=== PATIENT | male | born 1940 | race African-American/Black ===

== ENCOUNTER 2017-01-13 05:20 | Emergency (ER) | payer MEDICARE, OTHER ==
[~2017-01-13] VITALS: Ht 185.4 cm; Wt 88.5 kg
[~2017-01-13 05:20] MED LIST: ACET325T9 PO; ASPI-482 PO; ASPI-630 PO; CLOP75TA PO; CLOP75TA57 PO; DIPH25CA3 PO; GABA-585 PO; HYDR25TA9 PO; LISI40TA PO; NIFE60TA PO; POTA20PA PO; PRAV20TA2 PO; PRAV40TA2 PO
--- NOTE | 2017-01-13 06:28 | PHYS DOC ---
Past Medical History Past Medical History: Hypertension Alcohol Use: None Drug Use: None Adult General Chief Complaint Chief Complaint: MUSCLE SPASM/CRAMP HPI HPI Patient is a 76 year old male presenting to the emergency department for muscle cramps primarily in his left lower extremity. 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 Patient says they have improved since he has been here but he denies any fevers chills nausea vomiting diarrhea chest pain shortness of breath. Patient is pleasant and in no obvious distress with normal vital signs. Review of Systems Review of Systems Constitutional: Denies fever or chills [] Eyes: Denies change in visual acuity, redness, or eye pain [] HENT: Denies nasal congestion or sore throat [] Respiratory: Denies cough or shortness of breath [] Cardiovascular: No additional information not addressed in HPI [] GI: Denies abdominal pain, nausea, vomiting, bloody stools or diarrhea [] : Denies dysuria or hematuria [] Musculoskeletal: Denies back pain or joint pain [] Integument: Denies rash or skin lesions [] Neurologic: Denies headache, focal weakness or sensory changes [] Current Medications Current Medications Current Medications Medications (Trade) Dose Ordered Sig/Marlene Start Time Stop Time Status Last Admin Dose Admin Sodium Chloride 1,000 ml @ 1,000 mls/hr 1X ONCE 01/13/17 06:30 01/13/17 07:29 01/13/17 06:26 1,000 MLS/HR Allergies Allergies Allergies Coded Allergies Type Severity Reaction Last Updated Verified ibuprofen Allergy Mild Nausea and Vomiting 09/11/14 Yes tramadol Allergy Mild Nausea and Vomiting 09/11/14 Yes Physical Exam Physical Exam Constitutional: Well developed, well nourished, no acute distress, non-toxic appearance. [] HENT: Normocephalic, atraumatic, bilateral external ears normal, oropharynx moist, no oral exudates, nose normal. [] Eyes: PERRLA, EOMI, conjunctiva normal, no discharge. [] Neck: Normal range of motion, no tenderness, supple, no stridor. [] Cardiovascular:Heart rate regular rhythm, no murmur [] Lungs & Thorax: Bilateral breath sounds clear to auscultation [] Abdomen: Bowel sounds normal, soft, no tenderness, no masses, no pulsatile masses. [] Skin: Warm, dry, no erythema, no rash. [] Back: No tenderness, no CVA tenderness. [] Extremities: No tenderness, no cyanosis, no clubbing, ROM intact, no edema. [] Neurologic: Alert and oriented X 3, normal motor function, normal sensory function, no focal deficits noted. [] Current Patient Data Vital Signs Vital Signs Date Time Temp Pulse Resp B/P (MAP) Pulse Ox O2 Delivery O2 Flow Rate FiO2 01/13/17 05:56 97.6 60 16 170/81 (110) 96 Room Air 97.6 Lab Values Laboratory Tests Test 01/13/17 05:55 White Blood Count 5.0 x10^3/uL (4.0-11.0) Red Blood Count 4.35 x10^6/uL (4.30-5.70) Hemoglobin 13.3 g/dL (13.0-17.5) Hematocrit 38.4 % (39.0-53.0) L Mean Corpuscular Volume 88 fL (79-100) Mean Corpuscular Hemoglobin 31 pg (25-35) Mean Corpuscular Hemoglobin Concent 35 g/dL (31-37) Red Cell Distribution Width 14.3 % (11.5-14.5) Platelet Count 125 x10^3/uL (140-400) L Neutrophils (%) (Auto) 41 % (31-73) Lymphocytes (%) (Auto) 49 % (24-48) H Monocytes (%) (Auto) 8 % (0-9) Eosinophils (%) (Auto) 3 % (0-3) Basophils (%) (Auto) 1 % (0-3) Neutrophils # (Auto) 2.0 x10^3uL (1.8-7.7) Lymphocytes # (Auto) 2.4 x10^3/uL (1.0-4.8) Monocytes # (Auto) 0.4 x10^3/uL (0.0-1.1) Eosinophils # (Auto) 0.1 x10^3/uL (0.0-0.7) Basophils # (Auto) 0.0 x10^3/uL (0.0-0.2) Sodium Level 144 mmol/L (136-145) Potassium Level 3.5 mmol/L (3.5-5.1) Chloride Level 106 mmol/L (98-107) Carbon Dioxide Level 30 mmol/L (21-32) Anion Gap 8 (6-14) Blood Urea Nitrogen 33 mg/dL (8-26) H Creatinine 2.1 mg/dL (0.7-1.3) H Estimated GFR (Cockcroft-Gault) 37.4 BUN/Creatinine Ratio 16 (6-20) Glucose Level 86 mg/dL (70-99) Calcium Level 9.1 mg/dL (8.5-10.1) Magnesium Level 2.3 mg/dL (1.8-2.4) Total Bilirubin 0.5 mg/dL (0.2-1.0) Aspartate Amino Transferase (AST) 22 U/L (15-37) Alanine Aminotransferase (ALT) 27 U/L (16-63) Alkaline Phosphatase 85 U/L (46-116) Creatine Kinase 194 U/L (39-308) Total Protein 6.6 g/dL (6.4-8.2) Albumin 3.7 g/dL (3.4-5.0) Albumin/Globulin Ratio 1.3 (1.0-1.7) Laboratory Tests 01/13/17 05:55 Laboratory Tests 01/13/17 05:55 EKG EKG [] Radiology/Procedures Radiology/Procedures [] Course & Med Decision Making Course & Med Decision Making Patient with muscle cramps in the setting of likely dehydration. We'll check labs give fluids and reassess. BUN and Cr are elevated here, not dangerously elevated. Patient was drinking large amount of PO fluids in ED. Patient feels well and wants to go home which I think is reasonable given he can rehydrate himself orally. Patient told the importance of drinking plenty of fluids and that he needs to have his labs rechecked next week by his PCP and he would need to come back to the ED with any new or worsening symptoms. Aware and agreeable with plan for discharge and verbalized understanding of the need for short-term follow-up in the strict ER return precautions discussed including worsening pain fevers vomiting or other general concerns. Dragon Disclaimer Dragon Disclaimer This electronic medical record was generated, in whole or in part, using a voice recognition dictation system. Departure Departure Impression: Primary Impression: Dehydration Additional Impressions: Renal insufficiency Muscle cramps Disposition: HOME, SELF-CARE Condition: GOOD Referrals: ESTELLE ARELLANO MD (PCP) Patient Instructions: Dehydration, Adult Additional Instructions: YOU HAVE TO DRINK A LARGE AMOUNT OF WATER AND GATORADE. GET YOUR KIDNEY FUNCTION RETESTED NEXT WEEK YOUR CREATININE AND BUN ARE ELEVATED. COME BACK TO THE ED SOONER WITH ANY NEW OR WORSENING SYMPTOMS. THANK YOU! Problem Qualifiers MIGUEL OLSON DO Jan 13, 2017 06:28
[2017-01-13 06:29] LABS: CALCIUM 9.1 mg/dL (8.5-10.1); CREATININE 2.1 mg/dL (0.7-1.3); GFR 37.4; POTASSIUM 3.5 mmol/L (3.5-5.1)
[2017-01-13] MEDS ORDERED: IV NORMAL SALINE 1000ML BAG 1,000 ML IV ONE (06:30)
[2017-01-13 06:31] LABS: BASO % 1 % (0-3); EOS % 3 % (0-3); HEMATOCRIT 38.4 % (39.0-53.0); HEMOGLOBIN 13.3 g/dL (13.0-17.5); LYMPH # 2.4 x10^3/uL (1.0-4.8); LYMPH % 49 % (24-48); MEAN CORPUSCULAR HEMOGLOBIN 31 pg (25-35); MEAN CORPUSCULAR HGB CONC 35 g/dL (31-37); MEAN CORPUSCULAR VOLUME 88 fL (79-100); MONO % 8 % (0-9); NEUT % 41 % (31-73); PLATELET COUNT 125 x10^3/uL (140-400); RED BLOOD COUNT 4.35 x10^6/uL (4.30-5.70); RED CELL DISTRIBUTION WIDTH 14.3 % (11.5-14.5)
[2017-01-13 06:35] LABS: ALBUMIN 3.7 g/dL (3.4-5.0); ALBUMIN/GLOBULIN RATIO 1.3 (1.0-1.7); MAGNESIUM 2.3 mg/dL (1.8-2.4); TOTAL BILIRUBIN 0.5 mg/dL (0.2-1.0); TOTAL PROTEIN 6.6 g/dL (6.4-8.2)
[2017-01-13 07:00] VITALS: BP 178/81
== END 2017-01-13 07:07 | disposition home or self-care (01) ==
LOC: ER 05:20
DX: E86.0 Dehydration (principal); R25.2 Cramp and spasm; N28.9 Disorder of kidney and ureter, unspecified; I10 Essential (primary) hypertension; Z88.6 Allergy status to analgesic agent; Z88.5 Allergy status to narcotic agent
CPT/HCPCS: 36415; 80053; 82550; 83735; 85027; 96360; 99284; J7030; C1887

== ENCOUNTER 2018-07-24 15:55 | Inpatient (IN) | payer MEDICARE ==
[~2018-07-24] VITALS: Ht 185.4 cm; Wt 88.5 kg
[~2018-07-24 15:55] MED LIST changes: +HYDR-2145 PO; -HYDR25TA9 PO; +LISI-130 PO; -LISI40TA PO; -POTA20PA PO; +POTA20PA30 PO
[2018-07-24] MEDS ORDERED: ALBUTEROL SULFATE 2.5 MG/3 ML NEBU. NEB ONE (16:45)
[2018-07-24] MEDS ORDERED: ASPIRIN 325 MG TABLET PO ONE ×2 (16:45)
[2018-07-24 16:53] LABS: BASO # 0.2 x10^3/uL (0.0-0.2); BASO % 1 % (0-3); EOS % 0 % (0-3); HEMOGLOBIN 15.2 g/dL (13.0-17.5); LYMPH # 7.4 x10^3/uL (1.0-4.8); LYMPH % 53 % (24-48); MEAN CORPUSCULAR HEMOGLOBIN 30 pg (25-35); MEAN CORPUSCULAR HGB CONC 34 g/dL (31-37); MEAN CORPUSCULAR VOLUME 89 fL (79-100); MONO # 0.4 x10^3/uL (0.0-1.1); MONO % 3 % (0-9); NEUT # 5.8 x10^3uL (1.8-7.7); NEUT % 42 % (31-73); PLATELET COUNT 192 x10^3/uL (140-400); RED BLOOD COUNT 5.08 x10^6/uL (4.30-5.70); RED CELL DISTRIBUTION WIDTH 14.2 % (11.5-14.5); WHITE BLOOD COUNT 13.8 x10^3/uL (4.0-11.0)
--- NOTE | 2018-07-24 16:57 | RAD ---
Examination: CHEST PA LATERAL History: R side chest pain, soa Comparison/Correlation: 09/10/2014 two-view chest x-ray exam Findings: PA and lateral views of chest were obtained. Heart size is normal. No pneumothorax. Small bilateral pleural effusions are present. Interstitial edema or infiltrates of the lower lung english noted. No pneumothorax. Bony structures are intact. Calcified granulomas are seen. Impression: Small pleural effusions. Interstitial edema or infiltrates involving the bilateral lower hilar regions. Electronically signed by: Rico Doyle MD (07/24/2018 4:53 PM) [id number]
[2018-07-24 17:01] LABS: PROTHROMBIN TIME PATIENT 13.3 SEC (11.7-14.0)
[2018-07-24 17:06] LABS: CALCIUM 9.5 mg/dL (8.5-10.1); CREATININE 1.4 mg/dL (0.7-1.3); GFR 59.6; POTASSIUM 3.9 mmol/L (3.5-5.1)
[2018-07-24 17:12] LABS: ALBUMIN 3.7 g/dL (3.4-5.0); TOTAL BILIRUBIN 0.8 mg/dL (0.2-1.0); TOTAL PROTEIN 7.5 g/dL (6.4-8.2)
[2018-07-24 17:18] LABS: D-DIMER 6.58 ug/mlFEU (0.00-0.50)
[2018-07-24] MEDS ORDERED: hydrALAZINE 20 MG/ML VIAL. IVP ONE ×2 (17:45→19:30)
[2018-07-24] MEDS ORDERED: IV NORMAL SALINE 1000ML BAG 1,000 ML IV ONE (17:45)
[2018-07-24] MEDS ORDERED: MORPHINE SULFATE 4 MG/ML VIAL. IV ONE (17:45)
[2018-07-24] MEDS ORDERED: CONTRAST GIVEN. MC PRN (18:15)
[2018-07-24] MEDS ORDERED: IOHEXOL 350 MG/ML 100 ML VIAL. IV ONE (18:15)
--- NOTE | 2018-07-24 18:48 | RAD ---
CT ANGIOGRAPHY CHEST Indication: SOA, ELEVATED D-DIMER, RECENT TRAVEL VIA CAR 3 WEEKS AGO
IV OMNI 350 75 MLS
PREVIOUS . Comparison: No comparison is available. Technique: After intravenous contrast administration, CT imaging was performed of the chest. MIP reconstructions were obtained. Exposure: One or more of the following individualized dose reduction techniques were utilized for this examination: 1. Automated exposure control 2. Adjustment of the mA and/or kV according to patient size 3. Use of iterative reconstruction technique. FINDINGS: Pulmonary arteries: Limited visualization of the segmental peripheral branches, but no evidence of a pulmonary embolism. Thoracic aorta: Ectasia of the ascending aorta, 4.1 cm. There is pulsatility or motion artifact at the ascending aorta. Thyroid gland: Thickening of the isthmus, 15 mm, only partially seen Lymph nodes: Moderately enlarged axillary lymph nodes bilaterally and fairly symmetric, up to 15 mm short axis. Multiple enlarged mediastinal lymph nodes throughout the mediastinum also overall moderate. Mildly enlarged hilar lymph nodes. Heart: No significant pericadial effusion. Esophagus: Unremarkable Pleural spaces: Small right pleural effusion. Lungs: Atelectasis or infiltrate in the lower lobes bilaterally. There is a left anterior lower chest pleural-based mass, located between the inferior anterior left ribs. Measures 4.4 cm x 1.5 cm. There is a small nodule in the left lung base adjacent to this, which measures 6 mm. Trachea and central airways: Patent Bones: Degenerative spondylosis. Upper abdomen: Slices through the upper abdomen are limited due to the technique. The barely visualized upper pole right kidney demonstrates an approximately 2.5 cm lesion, 15 Hounsfield units, likely a cyst. External Soft Tissue: No acute findings. IMPRESSION: 1. No evidence of pulmonary embolism. 2. Moderate enlargement of numerous mediastinal and bilateral axillary lymph nodes, mild hilar lymph node enlargement. Nonspecific, but concerning for neoplastic etiology or jose metastases. Could also be inflammatory or infectious. 3. Pleural-based mass at the anterior left chest, also could be primary or secondary neoplasm. 4. Small 6 mm left pulmonary nodule. In the context of these other findings, could be metastatic. 5. Ectasia of the ascending aorta, 4.1 cm. 6. Partially visualized thyroid demonstrates enlargement at the isthmus. Electronically signed by: Clarke Dumas MD (07/24/2018 6:44 PM) [place] [id number]
[2018-07-24] MEDS ORDERED: LISINOPRIL 10 MG TABLET PO ONE (19:15)
--- NOTE | 2018-07-24 19:22 | PHYS DOC ---
Past Medical History Past Medical History: CAD, High Cholesterol, Hypertension Additional Past Medical Histor: PAD, possible irregular heart beat? Past Surgical History: Other Additional Past Surgical Histo: bilateral groin stents Alcohol Use: None Drug Use: None Adult General Chief Complaint Chief Complaint: CHEST WALL PAIN HPI HPI Patient is a 77 year old AA male who is an 71 emergency room today with complaints of right-sided chest pain that radiates into his right shoulder. He states that he first had pain in the left side of his chest on Monday, however, that pain went away and since yesterday he has had pain on the right side. Patient states that the pain increases when he takes a deep breath. He reports recent travel to [facility] via POV approximately 3 weeks ago. He denies any fever , nausea, vomiting, abdominal pain, diaphoresis, palpitations, syncope, dizziness, or fatigue. He states he feels short of breath and that the shortness of breath increases with minimal exertion. Currently, he rates his pain an 8 out of 10 on the pain scale, and describes the pain as sharp, stabbing , and shooting. He has not taken anything for relief of pain prior to arrival. Pt states that he did not take an aspirin today and that he did not take his home medications today. Review of Systems Review of Systems Constitutional: Denies fever or chills [] HENT: Denies nasal congestion or sore throat [] Respiratory: Denies cough; see HPI Cardiovascular: No additional information not addressed in HPI; see HPI[] GI: Denies abdominal pain, nausea, vomiting, or diarrhea [] Musculoskeletal: Denies joint pain; see HPI Integument: Denies rash or skin lesions [] Neurologic: Denies headache, focal weakness or sensory changes [] Complete systems were reviewed and found to be within normal limits, except as documented in this note. Current Medications Current Medications Current Medications Medications (Trade) Dose Ordered Sig/Marlene Start Time Stop Time Status Last Admin Dose Admin Albuterol Sulfate (Ventolin Neb Soln) 2.5 mg 1X ONCE 07/24/18 16:45 07/24/18 16:48 DC 07/24/18 17:03 2.5 MG Aspirin (Jarrell Aspirin) 325 mg 1X ONCE 07/24/18 16:45 07/24/18 16:46 DC 07/24/18 17:19 325 MG Hydralazine HCl (Apresoline Inj) 10 mg 1X ONCE 07/24/18 17:45 07/24/18 17:46 DC 07/24/18 17:50 10 MG Info (CONTRAST GIVEN -- Rx MONITORING) 1 each PRN DAILY PRN 07/24/18 18:15 07/26/18 18:14 Iohexol (Omnipaque 350 Mg/ml) 75 ml 1X ONCE 07/24/18 18:15 07/24/18 18:16 DC 07/24/18 18:08 75 ML Lisinopril (Prinivil) 40 mg 1X ONCE 07/24/18 19:15 07/24/18 19:16 DC 07/24/18 19:53 40 MG Morphine Sulfate (Morphine Sulfate) 4 mg 1X ONCE 07/24/18 17:45 07/24/18 17:46 DC 07/24/18 17:50 4 MG Sodium Chloride 1,000 ml @ 1,000 mls/hr 1X ONCE 07/24/18 17:45 07/24/18 18:44 DC 07/24/18 17:48 1,000 MLS/HR Allergies Allergies Allergies Coded Allergies Type Severity Reaction Last Updated Verified ibuprofen Adverse Reaction Intermediate Nausea and Vomiting 07/24/18 Yes tramadol Adverse Reaction Intermediate Nausea and Vomiting 07/24/18 Yes Physical Exam Physical Exam Constitutional: Well developed, well nourished, no acute distress, non-toxic appearance. [] HENT: Normocephalic, atraumatic, bilateral external ears normal, oropharynx moist, no oral exudates, nose normal. [] Eyes: conjunctiva normal, no discharge. [] Neck: Normal range of motion, no stridor. [] Cardiovascular:Heart rate regular rhythm, no murmur [] Lungs & Thorax: Bilateral breath sounds clear to auscultation in upper lobes, diminished with crackles in bilateral bases; chest wall is non-tender to palpation. [] Abdomen: Bowel sounds normal, soft, no tenderness, no masses, no pulsatile masses. [] Skin: Warm, dry, no erythema, no rash. [] Extremities: No cyanosis, no clubbing, ROM intact, no edema. [] Neurologic: Alert and oriented X 3, normal motor function, normal sensory function, no focal deficits noted. [] Psychologic: Affect normal, judgement normal, mood normal. [] Current Patient Data Vital Signs Vital Signs Date Time Temp Pulse Resp B/P (MAP) Pulse Ox O2 Delivery O2 Flow Rate FiO2 07/24/18 18:48 100 20 210/97 (134) 96 07/24/18 17:54 Room Air 07/24/18 16:20 98.1 98.1 Lab Values Laboratory Tests Test 07/24/18 16:38 White Blood Count 13.8 x10^3/uL (4.0-11.0) H Red Blood Count 5.08 x10^6/uL (4.30-5.70) Hemoglobin 15.2 g/dL (13.0-17.5) Hematocrit 45.0 % (39.0-53.0) Mean Corpuscular Volume 89 fL (79-100) Mean Corpuscular Hemoglobin 30 pg (25-35) Mean Corpuscular Hemoglobin Concent 34 g/dL (31-37) Red Cell Distribution Width 14.2 % (11.5-14.5) Platelet Count 192 x10^3/uL (140-400) Neutrophils (%) (Auto) 42 % (31-73) Lymphocytes (%) (Auto) 53 % (24-48) H Monocytes (%) (Auto) 3 % (0-9) Eosinophils (%) (Auto) 0 % (0-3) Basophils (%) (Auto) 1 % (0-3) Neutrophils # (Auto) 5.8 x10^3uL (1.8-7.7) Lymphocytes # (Auto) 7.4 x10^3/uL (1.0-4.8) H Monocytes # (Auto) 0.4 x10^3/uL (0.0-1.1) Eosinophils # (Auto) 0.0 x10^3/uL (0.0-0.7) Basophils # (Auto) 0.2 x10^3/uL (0.0-0.2) Prothrombin Time 13.3 SEC (11.7-14.0) Prothrombin Time INR 1.0 (0.8-1.1) D-Dimer (Berta) 6.58 ug/mlFEU (0.00-0.50) H Sodium Level 137 mmol/L (136-145) Potassium Level 3.9 mmol/L (3.5-5.1) Chloride Level 100 mmol/L (98-107) Carbon Dioxide Level 30 mmol/L (21-32) Anion Gap 7 (6-14) Blood Urea Nitrogen 12 mg/dL (8-26) Creatinine 1.4 mg/dL (0.7-1.3) H Estimated GFR (Cockcroft-Gault) 59.6 BUN/Creatinine Ratio 9 (6-20) Glucose Level 99 mg/dL (70-99) Calcium Level 9.5 mg/dL (8.5-10.1) Total Bilirubin 0.8 mg/dL (0.2-1.0) Aspartate Amino Transferase (AST) 17 U/L (15-37) Alanine Aminotransferase (ALT) 19 U/L (16-63) Alkaline Phosphatase 118 U/L (46-116) H Troponin I Quantitative < 0.017 ng/mL (0.000-0.055) QM-Xjn-I-Type Natriuretic Peptide 35 pg/mL (0-449) Total Protein 7.5 g/dL (6.4-8.2) Albumin 3.7 g/dL (3.4-5.0) Albumin/Globulin Ratio 1.0 (1.0-1.7) Laboratory Tests 07/24/18 16:38 Laboratory Tests 07/24/18 16:38 EKG EKG SR no STEMI read by Dr. Burgess[] Radiology/Procedures Radiology/Procedures PROCEDURE: CHEST PA & LATERAL Examination: CHEST PA LATERAL History: R side chest pain, soa Comparison/Correlation: 09/10/2014 two-view chest x-ray exam Findings: PA and lateral views of chest were obtained. Heart size is normal. No pneumothorax. Small bilateral pleural effusions are present. Interstitial edema or infiltrates of the lower lung english noted. No pneumothorax. Bony structures are intact. Calcified granulomas are seen. Impression: Small pleural effusions. Interstitial edema or infiltrates involving the bilateral lower hilar regions. PROCEDURE: CT ANGIOGRAPHY CHEST CT ANGIOGRAPHY CHEST Indication: SOA, ELEVATED D-DIMER, RECENT TRAVEL VIA CAR 3 WEEKS AGO
IV OMNI 350 75 MLS
PREVIOUS . Comparison: No comparison is available. Technique: After intravenous contrast administration, CT imaging was performed of the chest. MIP reconstructions were obtained. Exposure: One or more of the following individualized dose reduction techniques were utilized for this examination: 1. Automated exposure control 2. Adjustment of the mA and/or kV according to patient size 3. Use of iterative reconstruction technique. FINDINGS: Pulmonary arteries: Limited visualization of the segmental peripheral branches, but no evidence of a pulmonary embolism. Thoracic aorta: Ectasia of the ascending aorta, 4.1 cm. There is pulsatility or motion artifact at the ascending aorta. Thyroid gland: Thickening of the isthmus, 15 mm, only partially seen Lymph nodes: Moderately enlarged axillary lymph nodes bilaterally and fairly symmetric, up to 15 mm short axis. Multiple enlarged mediastinal lymph nodes throughout the mediastinum also overall moderate. Mildly enlarged hilar lymph nodes. Heart: No significant pericadial effusion. Esophagus: Unremarkable Pleural spaces: Small right pleural effusion. Lungs: Atelectasis or infiltrate in the lower lobes bilaterally. There is a left anterior lower chest pleural-based mass, located between the inferior anterior left ribs. Measures 4.4 cm x 1.5 cm. There is a small nodule in the left lung base adjacent to this, which measures 6 mm. Trachea and central airways: Patent Bones: Degenerative spondylosis. Upper abdomen: Slices through the upper abdomen are limited due to the technique. The barely visualized upper pole right kidney demonstrates an approximately 2.5 cm lesion, 15 Hounsfield units, likely a cyst. External Soft Tissue: No acute findings. IMPRESSION: 1. No evidence of pulmonary embolism. 2. Moderate enlargement of numerous mediastinal and bilateral axillary lymph nodes, mild hilar lymph node enlargement. Nonspecific, but concerning for neoplastic etiology or jose metastases. Could also be inflammatory or infectious. 3. Pleural-based mass at the anterior left chest, also could be primary or secondary neoplasm. 4. Small 6 mm left pulmonary nodule. In the context of these other findings, could be metastatic. 5. Ectasia of the ascending aorta, 4.1 cm. 6. Partially visualized thyroid demonstrates enlargement at the isthmus. [] Course & Med Decision Making Course & Med Decision Making Pertinent Labs and Imaging studies reviewed. (See chart for details) Admit: pneumonia, hypertension Pt was given 325 mg of aspirin in the emergency department. He also received a Ventolin nebulizer nebulizer treatment, 4 mg of morphine, 40 mg of lisinopril and 10 mg of hydralizine. Labs revealed WBC 13.8, D-Dimer 6.58, learning officer 1.4, alk phos 118, Troponin <0.017 EKG was negative for STEMI CXR revealed Small pleural effusions. Interstitial edema or infiltrates involving the bilateral lower hilar regions. CT angio revealed: 1. No evidence of pulmonary embolism. 2. Moderate enlargement of numerous mediastinal and bilateral axillary lymph nodes, mild hilar lymph node enlargement. Nonspecific, but concerning for neoplastic etiology or jose metastases. Could also be inflammatory or infectious. 3. Pleural-based mass at the anterior left chest, also could be primary or secondary neoplasm. 4. Small 6 mm left pulmonary nodule. In the context of these other findings, could be metastatic. 5. Ectasia of the ascending aorta, 4.1 cm. 6. Partially visualized thyroid demonstrates enlargement at the isthmus. 191- Spoke with Dr. Bee, advised of lab and radiology results. Will initiate zosyn 3.375 gm IV and azithromycin 500 mg IV, and admit patient for pneumonia. 1927- Advised Dr. Bee of hypertension that has not responded to 10 mg of hydralizine and 40 mg PO lisinopril was given in the ER. Per Dr. Bee repeat 10 mg of hydralizine IV, and give 1.25 mg of enalapril IV. Will add hypertension to admission dx. [] Dragon Disclaimer Dragon Disclaimer This electronic medical record was generated, in whole or in part, using a voice recognition dictation system. Departure Departure Impression: Primary Impression: Pneumonia Additional Impression: Hypertension Disposition: 09 ADMITTED INPATIENT Admitting Physician: Kieran Ramirez Condition: STABLE Referrals: ESTELLE ARELLANO MD (PCP) Problem Qualifiers Primary Impression: Pneumonia Pneumonia type: due to unspecified organism Laterality: unspecified laterality Lung location: unspecified part of lung Qualified Codes: J18.9 - Pneumonia, unspecified organism Additional Impression: Hypertension Hypertension type: unspecified Qualified Codes: I10 - Essential (primary) hypertension DEBBY CISNEROS TOOL DESIGN DRAFTSPERSON Jul 24, 2018 19:22
[2018-07-24] MEDS ORDERED: ENALAPRILAT 1.25 MG/ML VIAL. IVP ONE (19:30)
[2018-07-24] MEDS ORDERED: AZITHRMYCN 500MG IVPB FOR OMNI 250 ML IV ONE (19:30)
[2018-07-24] MEDS ORDERED: PIPERACILLIN/TAZOBACTAM 3.375 GM in IV NORMAL SALINE 50ML 50 ML IV ONE (19:30)
--- NOTE | 2018-07-24 21:12 | NUR ---
The patient, KEN SUAREZ, 77 y/o, M admitted by CONNOR SANDERS MD, was given written information regarding hospital policies, unit procedures and contact persons. Valuables were checked and left in patients room with patient.
[2018-07-24 21:17] VITALS: BP 211/94
[2018-07-24] MEDS ORDERED: ALLO100T PO (21:26)
[2018-07-24] MEDS ORDERED: EZET10TA18 PO (21:26)
[2018-07-24] MEDS ORDERED: CILO100T PO (21:26)
[2018-07-24] MEDS ORDERED: ATOR80TA72 PO (21:26)
[2018-07-24] MEDS ORDERED: MORPHINE SULFATE 2 MG/ML VIAL. IV PRN (22:45)
[2018-07-24] MEDS ORDERED: LISINOPRIL 20 MG TABLET PO ONE (22:45)
[2018-07-24 23:10] VITALS: BP 162/75
[2018-07-25 03:26] VITALS: BP 182/90
[2018-07-25] MEDS ORDERED: METOPROLOL TART IMMED RELEASE 25 MG TABLET. PO ONE (05:00)
[2018-07-25] MEDS: ACETAMINOPHEN/CODEINE 300/30MG TABLET. PO PRN ×2 (05:14→09:33)
--- NOTE | 2018-07-25 05:42 | NUR ---
patient's blood pressure was 182/90, the nurse called Dr Elizondo who gave an order of Metoprol 12.5mg po, q6. The nurse continued monitoring the patient.
[2018-07-25 07:00] VITALS: BP 150/79
--- NOTE | 2018-07-25 07:05 | EKG ---
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
[2018-07-25] MEDS ORDERED: ACET-704 PO (08:39)
[2018-07-25] MEDS ORDERED: CYCL10TA2 PO (08:39)
[2018-07-25 11:00] VITALS: BP 167/98
[2018-07-25] MEDS ORDERED: METOPROLOL TART IMMED RELEASE 25 MG TABLET. PO SCH (12:00)
--- NOTE | 2018-07-25 13:54 | HP ---
ADMIT DATE: 07/24/2018 CHIEF COMPLAINT: Shortness of breath and chest discomfort. HISTORY OF PRESENT ILLNESS: The patient is a pleasant middle-aged male, who presented with chest discomfort and shortness of breath. It has been occurring for several days, rated at 9/10. He has some associated anxiety. States it is worse with moving, tried taking some home meds without any help, describes it as stabbing. While in the ER, he was noted to have pneumonia. We have admitted the patient and we have given antibiotics. We just got a CAT scan as well it is showing possible metastatic cancer. We are going to admit the patient in consult Oncology and Dr. Richmond. PAST MEDICAL HISTORY: CAD, hypertension, hyperlipidemia, peripheral vascular disease, arrhythmias, bilateral groin stents. ALLERGIES: IBUPROFEN AND ULTRAM. FAMILY HISTORY: Hypertension. SOCIAL HISTORY: He is retired. He does not drink, smoke or take drugs. MEDICATIONS: Reviewed. He is on cyclobenzaprine, Zetia, atorvastatin, lisinopril, aspirin, Tylenol, and allopurinol. REVIEW OF SYSTEMS: GENERAL: No history of weight change, weakness or fevers. SKIN: No bruising, hair changes or rashes. EYES: No blurred, double or loss of vision. NOSE AND THROAT: No history of nosebleeds, hoarseness or sore throat. HEART: He complains of right-sided chest pain. LUNGS: He complains of shortness of breath. GASTROINTESTINAL: Denies changes in appetite, nausea, vomiting, diarrhea or constipation. GENITOURINARY: No history of frequency, urgency, hesitancy or nocturia. NEUROLOGIC: Denies history of numbness, tingling, tremor or weakness. PSYCHIATRIC: No history of panic, anxiety or depression. ENDOCRINE: No history of heat or cold intolerance, polyuria or polydipsia. EXTREMITIES: Denies muscle weakness, joint pain, pain on walking or stiffness. PHYSICAL EXAMINATION: VITAL SIGNS: Temperature is afebrile, pulse 80, respirations 16, blood pressure 160/90. GENERAL: He is alert, cooperative. HEART: Normal S1, S2. LUNGS: Slight rightward crackles. ABDOMEN: Soft. EXTREMITIES: 1+ edema. SKIN: No rash. ENDOCRINE: No thyromegaly. LYMPHATICS: No cervical nodes. HEMATOPOIETIC: No bruising. PSYCHIATRIC: He is little anxious. LABORATORY DATA: White count is 14. Electrolytes are normal. CT of the chest shows possible metastatic disease. INR is 1. D-dimer is surprisingly high at 6.58, but his CAT scan does not show any PEs. ASSESSMENT AND PLAN: Pneumonia, elevated D-dimer, possible malignancy noted on CAT scan of the chest. The patient has been admitted. We will consult Oncology and Pulmonary. Deep venous thrombosis prophylaxis, DuoNebs, oxygen, IV antibiotics, home meds, frequent labs, PT, OT. Prognosis is extremely guarded at best. HERNESTO WALLIS DO DR: CORY/lavon JOB#: [id number] / [id number]
[2018-07-25] MEDS ORDERED: ENOXAPARIN 40 MG/0.4 ML SYRINGE. SQ SCH (14:00)
--- NOTE | 2018-07-25 14:09 | DS ---
DATE OF DISCHARGE: 07/25/2018 ADMISSION DIAGNOSES: Pneumonia and possible cancer. DISCHARGE DIAGNOSIS: Resolving pneumonia. HOSPITAL COURSE: The patient is a pleasant middle-aged male who presented with pneumonia and a possible cancer on his CAT scan. We admitted the patient, gave him breathing treatments, oxygen, antibiotics and consulted Pulmonary and Oncology. Dr. Richmond has seen the patient. He states the patient is stable enough to go home. Clinically, this patient does seem stable. We are going to discharge. I asked the nurse to arrange an appointment with Dr. Diaz, our oncologist, for followup. DISPOSITION: Home. ACTIVITY: As tolerated. DIET: Low sodium. MEDICATIONS: Please see the MRAD. TOTAL TIME: 31 minutes. HERNESTO WALLIS DO DR: CORY/lavon JOB#: [id number] / [id number]
[2018-07-25 15:00] VITALS: BP 163/101
--- NOTE | 2018-07-25 15:14 | NUR ---
Discharge teaching provided written and verbal to pt. Appointment made for pt with Dr Diaz on 08/10/[address] at [address] chest report and progress note to Dr Diaz. Pt verbalized understanding of appoint time and date and location with Dr Diaz. Pt verbalized understanding of all discharge teaching. Pt awaiting ride from his daughter.
--- NOTE | 2018-07-25 16:47 | PDOC ---
PULMONARY PROGRESS NOTES Vitals Vital Signs Date Time Temp Pulse Resp B/P (MAP) Pulse Ox O2 Delivery O2 Flow Rate FiO2 07/25/18 15:00 98.0 109 16 163/101 (121) 97 Room Air 98.0 Labs Laboratory Tests Test 07/24/18 16:38 07/24/18 19:44 White Blood Count 13.8 x10^3/uL (4.0-11.0) Red Blood Count 5.08 x10^6/uL (4.30-5.70) Hemoglobin 15.2 g/dL (13.0-17.5) Hematocrit 45.0 % (39.0-53.0) Mean Corpuscular Volume 89 fL (79-100) Mean Corpuscular Hemoglobin 30 pg (25-35) Mean Corpuscular Hemoglobin Concent 34 g/dL (31-37) Red Cell Distribution Width 14.2 % (11.5-14.5) Platelet Count 192 x10^3/uL (140-400) Neutrophils (%) (Auto) 42 % (31-73) Lymphocytes (%) (Auto) 53 % (24-48) Monocytes (%) (Auto) 3 % (0-9) Eosinophils (%) (Auto) 0 % (0-3) Basophils (%) (Auto) 1 % (0-3) Neutrophils # (Auto) 5.8 x10^3uL (1.8-7.7) Lymphocytes # (Auto) 7.4 x10^3/uL (1.0-4.8) Monocytes # (Auto) 0.4 x10^3/uL (0.0-1.1) Eosinophils # (Auto) 0.0 x10^3/uL (0.0-0.7) Basophils # (Auto) 0.2 x10^3/uL (0.0-0.2) Prothrombin Time 13.3 SEC (11.7-14.0) Prothromb Time International Ratio 1.0 (0.8-1.1) D-Dimer (Ebrta) 6.58 ug/mlFEU (0.00-0.50) Sodium Level 137 mmol/L (136-145) Potassium Level 3.9 mmol/L (3.5-5.1) Chloride Level 100 mmol/L (98-107) Carbon Dioxide Level 30 mmol/L (21-32) Anion Gap 7 (6-14) Blood Urea Nitrogen 12 mg/dL (8-26) Creatinine 1.4 mg/dL (0.7-1.3) Estimated GFR (Cockcroft-Gault) 59.6 BUN/Creatinine Ratio 9 (6-20) Glucose Level 99 mg/dL (70-99) Calcium Level 9.5 mg/dL (8.5-10.1) Total Bilirubin 0.8 mg/dL (0.2-1.0) Aspartate Amino Transf (AST/SGOT) 17 U/L (15-37) Alanine Aminotransferase (ALT/SGPT) 19 U/L (16-63) Alkaline Phosphatase 118 U/L (46-116) Troponin I Quantitative < 0.017 ng/mL (0.000-0.055) UU-Bny-A-Type Natriuretic Peptide 35 pg/mL (0-449) Total Protein 7.5 g/dL (6.4-8.2) Albumin 3.7 g/dL (3.4-5.0) Albumin/Globulin Ratio 1.0 (1.0-1.7) Lactic Acid Level 1.4 mmol/L (0.4-2.0) Laboratory Tests Test 07/24/18 19:44 Lactic Acid Level 1.4 mmol/L (0.4-2.0) Medications Active Scripts Medications Dose Route/Sig Max Daily Dose Days Date Category Cyclobenzaprine Hcl 10 Mg Tablet 1 Tab PO PRN Q8HRS PRN 07/25/18 Reported Tylenol With Codeine #3 Tablet (Acetaminophen/Codeine Phosphate) 1 Each Tablet 2 Tab PO PRN Q12HR PRN 07/25/18 Reported Zetia (Ezetimibe) 10 Mg Tablet 1 Tab PO DAILY 07/24/18 Reported Allopurinol 100 Mg Tablet 1 Tab PO BID 07/24/18 Reported Cilostazol 100 Mg Tablet 1 Tab PO BID 07/24/18 Reported Atorvastatin Calcium 80 Mg Tablet 40 Mg PO QHS 07/24/18 Reported Aspirin 81 Mg Tab.chew 81 Mg PO DAILY 09/10/15 Reported Lisinopril 40 Mg Tablet 40 Mg PO DAILY08 10/02/13 Reported Impression . FULL NOTE DICTATED KELSEY SERRANO MD Jul 25, 2018 16:47
--- NOTE | 2018-07-25 17:14 | NUR ---
Pt dismissed to home per w/c with all belongings accompanied by his daughter. Transported to exit per w/c at 1545.
--- NOTE | 2018-07-25 21:05 | CONS ---
DATE OF CONSULTATION: 07/25/2018 ATTENDING PHYSICIAN: Dean Garcias D.O. REASON FOR CONSULTATION: The patient seen in Pulmonary consultation at the request of Dr. Garcias for abnormal CT chest revealing a pleural based mass in the left. HISTORY OF PRESENT ILLNESS: The patient is a 77-year-old -[place] male who presented to the Emergency Room with mostly right-sided chest discomfort, increasing with deep inspiration. No fever or chills. This has been ongoing now since Monday and he also had some left-sided discomfort. The patient was admitted and underwent evaluation. He had a CT angiogram, which revealed no evidence of pulmonary emboli. There were several findings of enlargement of mediastinum and bilateral axillary with lymph nodes. There was mild hilar lymph node enlargement. There is also a pleural based mass, anterior left chest wall and a 6 mm pulmonary nodule. I was asked to see him in consultation. The patient denies any significant weight loss. No hemoptysis. He has never smoked. There is no history of asbestos exposure. No prior history of DVT or pulmonary embolism. No recent chest trauma. PAST MEDICAL HISTORY: Coronary artery disease, hyperlipidemia, hypertension and peripheral arterial disease. PAST SURGICAL HISTORY: He has had bilateral stents in the lower extremities placed. ALLERGIES: To IBUPROFEN and TRAMADOL. REVIEW OF SYSTEMS: CONSTITUTIONAL: No fever or chills. EYES: No change in visual acuity. HEAD, EARS, NOSE AND THROAT: No nasal congestion or sore throat. PULMONARY: As indicated above. GASTROINTESTINAL: No nausea, vomiting or diarrhea. CARDIOVASCULAR: As indicated above. MUSCULOSKELETAL: No localized muscle aches or joint pains. SKIN: No new skin rashes. NEUROLOGICAL: No headaches, diplopia or blurred vision. CURRENT MEDICATIONS: List was reviewed. PHYSICAL EXAMINATION: VITAL SIGNS: Stable. O2 saturation was greater than 92%. HEENT: Eyes, the sclerae were nonicteric. NECK: Jugular venous distention was not elevated. No lymphadenopathy. CHEST: Full expansion. LUNGS: Adequate airway flow with no wheezes. CARDIOVASCULAR: Regular rate and rhythm with S1 and S2. No S3. ABDOMEN: Soft, nontender and nondistended. EXTREMITIES: No clubbing, cyanosis or edema. NEUROLOGICAL: The patient was awake, alert, following commands. A detailed neuro exam was not performed. LABORATORY DATA: Labs were reviewed. Electrolytes were noted. BUN and creatinine was noted. Liver chemistries were noted. IMPRESSION: 1. Abnormal CT chest revealing several findings as indicated above a left pleural based mass, 6 mm pulmonary nodule and some adenopathy. 2. No history of tobacco or asbestos exposure. 3. Chest pain, suspect pleurisy. PLAN: The patient wishes to be discharged home and have this followup as an outpatient for further workup. Discharge home followup in my office. I will review the films with the interventional radiologist and make further recommendations. I do appreciate the privilege in sharing in the patient's care. KELSEY SERRANO MD DR: ELVIE/lavon JOB#: [id number] / [id number]
== END 2018-07-25 15:45 | disposition home or self-care (01) | DRG 871 ==
LOC: ER 15:55 → 5 NORTH 19:15
PROVIDERS: ADMIT Family Medicine; ATTEND Family Medicine
DX: A41.9 Sepsis, unspecified organism (principal); J18.9 Pneumonia, unspecified organism; C80.1 Malignant (primary) neoplasm, unspecified; E78.00 Pure hypercholesterolemia, unspecified; E78.5 Hyperlipidemia, unspecified; F41.9 Anxiety disorder, unspecified; I10 Essential (primary) hypertension; I25.10 Atherosclerotic heart disease of native coronary artery without angina pectoris; I73.9 Peripheral vascular disease, unspecified; R79.1 Abnormal coagulation profile; Z82.49 Family history of ischemic heart disease and other diseases of the circulatory system; Z88.8 Allergy status to other drugs, medicaments and biological substances
CPT/HCPCS: 36415; 71046; 71275; 80053; 83605; 83880; 84484; 85025; 85379; 85610; 87040; 93005; 94640; 96374; 96375; J0360; J0456; J2270; J2543; J7030; J7613; Q9967; 99285-25; G0378